=== PATIENT | male | born 1960 | race Caucasian/White ===

== ENCOUNTER 2017-07-28 16:29 | Inpatient (IN) | payer SELFPAY ==
[~2017-07-28] VITALS: Ht 172.7 cm; Wt 84.1 kg
[2017-07-28 17:27] LABS: BASOPHILS 0.6 % (0-2); EOSINOPHILS 1.8 % (0-7); HEMATOCRIT 24.1 % (42.0-54.0); IMMATURE GRANULOCYTES 0.4 % (0-5); LYMPHOCYTES 32.9 % (15-50); MCH 21.5 pg (26.0-34.0); MCHC 30.3 g/dL (31.0-37.0); MCV 70.9 fL (80.0-100.0); MEAN PLATELET VOLUME 10.4 fL (7.4-10.4); NEUTROPHILS 49.3 % (40-80); PLATELET COUNT 158 10x3/uL (130-400); RDW 17.9 % (11.5-14.5); WBC 7.1 10x3/uL (4.8-10.8)
[2017-07-28 17:45] LABS: HEMOGLOBIN 7.3 g/dL (13.5-17.5)
[2017-07-28 17:58] LABS: ALBUMIN 3.5 g/dL (3.4-5.0); ALKALINE PHOSPHATASE 96 U/L (46-116); ALT (SGPT) 54 U/L (10-68); BILIRUBIN - TOTAL 1.63 mg/dL (0.2-1.3); CALC OSMOLALITY 277 mosm/kg (275-300); CARBON DIOXIDE 25.7 mmol/L (21.0-32.0); CHLORIDE - SERUM 104 mmol/L (98-107); CREATININE - SERUM 0.9 mg/dL (0.6-1.3); GLUCOSE 101 mg/dL (74-106); POTASSIUM - SERUM 4.3 mmol/L (3.5-5.1); PROTEIN - SERUM 7.7 g/dL (6.4-8.2); SODIUM 139 mmol/L (136-145); UREA NITROGEN 13 mg/dL (7-18); eGFR NON AFRICAN AMERICAN > 90 mL/min (90-120)
[2017-07-28 18:01] VITALS: BP 135/48; BMI 28.2
[2017-07-28 22:06] VITALS: Ht 172.7 cm; Wt 84.1 kg
[2017-07-28 23:49] VITALS: BP 105/36
[2017-07-29 05:25] VITALS: BP 118/59
[2017-07-29 07:19] LABS: BASOPHILS 0.5 % (0-2); EOSINOPHILS 2.6 % (0-7); HEMATOCRIT 28.1 % (42.0-54.0); IMMATURE GRANULOCYTES 0.8 % (0-5); LYMPHOCYTES 34.3 % (15-50); MCHC 31.3 g/dL (31.0-37.0); MONOCYTES 15.2 % (2-11); NEUTROPHILS 46.6 % (40-80); PLATELET COUNT 133 10x3/uL (130-400); RBC 3.83 10x6/uL (4.20-6.10); RDW 19.3 % (11.5-14.5); WBC 6.1 10x3/uL (4.8-10.8)
[2017-07-29 07:27] LABS: HEMOGLOBIN 8.8 g/dL (13.5-17.5); MCV 73.4 fL (80.0-100.0)
[2017-07-29 08:00] LABS: ALBUMIN 3.1 g/dL (3.4-5.0); ALKALINE PHOSPHATASE 85 U/L (46-116); ALT (SGPT) 47 U/L (10-68); BILIRUBIN - TOTAL 1.55 mg/dL (0.2-1.3); CALC OSMOLALITY 277 mosm/kg (275-300); CHLORIDE - SERUM 107 mmol/L (98-107); CREATININE - SERUM 0.9 mg/dL (0.6-1.3); GLUCOSE 93 mg/dL (74-106); POTASSIUM - SERUM 4.1 mmol/L (3.5-5.1); PROTEIN - SERUM 6.8 g/dL (6.4-8.2); SODIUM 140 mmol/L (136-145); THYROID STIMULATING HORMONE 0.92 uIU/mL (0.36-3.74); UREA NITROGEN 10 mg/dL (7-18); eGFR NON AFRICAN AMERICAN > 90 mL/min (90-120)
[2017-07-29 08:11] LABS: INR 1.25 (0.85-1.17); PROTIME 15.3 SECONDS (11.6-15.0)
[2017-07-29 08:12] LABS: APTT 33.5 SECONDS (22.8-39.4)
[2017-07-29 09:27] VITALS: BP 114/64
[2017-07-29 11:34] VITALS: BP 120/68
[2017-07-29 12:26] VITALS: BP 120/68
[2017-07-29 14:22] LABS: HEMATOCRIT 29.7 % (42.0-54.0); HEMOGLOBIN 9.4 g/dL (13.5-17.5)
[2017-07-29 14:39] LABS: APPEARANCE CLEAR (CLEAR); BILIRUBIN NEGATIVE (NEGATIVE); COLOR DK YELLOW (YELLOW); GLUCOSE NEGATIVE (NEGATIVE); KETONE NEGATIVE (NEGATIVE); NITRITE NEGATIVE (NEGATIVE); PROTEIN NEGATIVE (NEGATIVE); SPECIFIC GRAVITY 1.015 (1.005-1.020); UROBILINOGEN NORMAL (NORMAL)
[2017-07-29 15:42] VITALS: BP 146/70
[2017-07-29 23:10] VITALS: BP 128/58
[2017-07-30 02:43] VITALS: BP 136/64
[2017-07-30 03:57] LABS: BASOPHILS 0.5 % (0-2); EOSINOPHILS 3.3 % (0-7); HEMATOCRIT 27.9 % (42.0-54.0); HEMOGLOBIN 8.7 g/dL (13.5-17.5); IMMATURE GRANULOCYTES 0.8 % (0-5); LYMPHOCYTES 31.4 % (15-50); MCH 22.8 pg (26.0-34.0); MCHC 31.2 g/dL (31.0-37.0); MCV 73.2 fL (80.0-100.0); MEAN PLATELET VOLUME 9.7 fL (7.4-10.4); MONOCYTES 16.1 % (2-11); NEUTROPHILS 47.9 % (40-80); PLATELET COUNT 148 10x3/uL (130-400); RBC 3.81 10x6/uL (4.20-6.10); RDW 19.1 % (11.5-14.5)
[2017-07-30 04:17] LABS: ALBUMIN 3.1 g/dL (3.4-5.0); ALKALINE PHOSPHATASE 77 U/L (46-116); ALT (SGPT) 48 U/L (10-68); AMYLASE - SERUM 99 U/L (25-115); CALC OSMOLALITY 274 mosm/kg (275-300); CARBON DIOXIDE 25.9 mmol/L (21.0-32.0); CHLORIDE - SERUM 106 mmol/L (98-107); GLUCOSE 89 mg/dL (74-106); LIPASE 458 U/L (73-393); SODIUM 139 mmol/L (136-145); UREA NITROGEN 8 mg/dL (7-18); eGFR NON AFRICAN AMERICAN 82 mL/min (90-120)
[2017-07-30 05:13] VITALS: BP 123/79
[2017-07-30 10:02] VITALS: BP 135/77
[2017-07-30 22:06] VITALS: BP 112/51
[2017-07-31 04:40] LABS: BASOPHILS 0.7 % (0-2); EOSINOPHILS 2.9 % (0-7); HEMATOCRIT 27.2 % (42.0-54.0); HEMOGLOBIN 8.4 g/dL (13.5-17.5); IMMATURE GRANULOCYTES 0.9 % (0-5); LYMPHOCYTES 26.9 % (15-50); MCH 22.6 pg (26.0-34.0); MCHC 30.9 g/dL (31.0-37.0); MCV 73.3 fL (80.0-100.0); MEAN PLATELET VOLUME 10.1 fL (7.4-10.4); MONOCYTES 17.4 % (2-11); NEUTROPHILS 51.2 % (40-80); PLATELET COUNT 144 10x3/uL (130-400); RBC 3.71 10x6/uL (4.20-6.10); RDW 19.6 % (11.5-14.5); WBC 5.5 10x3/uL (4.8-10.8)
[2017-07-31 04:54] LABS: ALBUMIN 2.7 g/dL (3.4-5.0); ALKALINE PHOSPHATASE 83 U/L (46-116); ALT (SGPT) 43 U/L (10-68); BILIRUBIN - TOTAL 1.48 mg/dL (0.2-1.3); CALC OSMOLALITY 277 mosm/kg (275-300); CALCIUM 7.6 mg/dL (8.5-10.1); CARBON DIOXIDE 25.2 mmol/L (21.0-32.0); CHLORIDE - SERUM 107 mmol/L (98-107); CREATININE - SERUM 0.9 mg/dL (0.6-1.3); GLUCOSE 98 mg/dL (74-106); LIPASE 575 U/L (73-393); POTASSIUM - SERUM 4.1 mmol/L (3.5-5.1); PROTEIN - SERUM 6.3 g/dL (6.4-8.2); SODIUM 140 mmol/L (136-145); UREA NITROGEN 9 mg/dL (7-18); eGFR NON AFRICAN AMERICAN > 90 mL/min (90-120)
[2017-07-31 05:40] VITALS: BP 120/70
[2017-07-31 07:03] VITALS: BP 122/70
[2017-07-31] MEDS ORDERED: CARAFATE1 G/10 ML PO (10:18)
[2017-07-31] MEDS ORDERED: PROTONIX40 MG PO (10:18)
[2017-07-31] MEDS ORDERED: ENULOSE10 G/15 ML PO (10:22)
[2017-08-03 04:13] LABS: ALPHA FETOPROTEIN -(TUMOR MRK) 4.4 ng/mL (0.0-8.3)
[2017-08-03 15:24] LABS: HEPATITIS C ANTIBODY <0.1 (0.0-0.9)
== END 2017-07-31 13:05 | disposition home or self-care (01) | DRG 378 ==
LOC: D.MS 16:29
PROVIDERS: Family Medicine; Internal Medicine Gastroenterology
PROC: 0DB78ZX Excision of Stomach, Pylorus, Via Natural or Artificial Opening Endoscopic, Diagnostic (ICD-10-PCS; 2017-07-30)
PROC: 0DB38ZX Excision of Lower Esophagus, Via Natural or Artificial Opening Endoscopic, Diagnostic (ICD-10-PCS; 2017-07-30)
PROC: 0DB48ZX Excision of Esophagogastric Junction, Via Natural or Artificial Opening Endoscopic, Diagnostic (ICD-10-PCS; 2017-07-30)
PROC: 0DBP8ZZ Excision of Rectum, Via Natural or Artificial Opening Endoscopic (ICD-10-PCS; 2017-07-30)
PROC: 0DB98ZX Excision of Duodenum, Via Natural or Artificial Opening Endoscopic, Diagnostic (ICD-10-PCS; principal; 2017-07-30 11:00)
DX: K25.4 Chronic or unspecified gastric ulcer with hemorrhage (principal); E72.20 Disorder of urea cycle metabolism, unspecified; D50.0 Iron deficiency anemia secondary to blood loss (chronic); R53.1 Weakness; R68.81 Early satiety; R14.0 Abdominal distension (gaseous); K22.70 Barrett's esophagus without dysplasia; K44.9 Diaphragmatic hernia without obstruction or gangrene; K57.30 Diverticulosis of large intestine without perforation or abscess without bleeding; K62.1 Rectal polyp; K64.8 Other hemorrhoids

== ENCOUNTER → 2017-09-30 08:53 | Outpatient (CLI) | payer SELFPAY ==
[2017-07-28 22:06] VITALS: BMI 28.2
[~2017-09-30 08:53] MED LIST: CARAFATE1 G/10 ML PO; ENULOSE10 G/15 ML PO; PROTONIX40 MG PO
== END | disposition home or self-care (01) ==
LOC: D.US 08:53
DX: K22.70 Barrett's esophagus without dysplasia (principal); R74.8 Abnormal levels of other serum enzymes